=== PATIENT | female | born 1990 | race Caucasian/White ===

== ENCOUNTER 2021-11-24 10:04 | Outpatient (REF) | payer OTHER, SELFPAY ==
[2021-11-24 13:51] LABS: MANUAL DIFF FLAG NO
[2021-11-24 13:55] LABS: Basophils Percent Auto 0.6 % (0-2); Eosinophils Absolute Auto 0.1 X10*3/uL (0.0-0.4); Eosinophils Percent Auto 2.4 % (0-4); Hematocrit 43.9 % (37.0-47.0); Hemoglobin 15.3 g/dl (12.0-16.0); Imm Gran Abs Auto 0.01 X10*3/uL (0.00-0.03); Imm Gran Pct Auto 0.2 % (0.0-0.4); Lymphocytes Absolute Auto 1.1 X10*3/uL (1.2-4.9); Mean Corpuscular HGB Conc 34.9 g/dl (31.0-35.0); Mean Corpuscular Hemoglobin 30.8 pg (27.0-33.0); Mean Corpuscular Volume 88.3 fL (80.0-98.0); Monocytes Absolute Auto 0.3 X10*3/uL (0.1-1.2); Monocytes Percent Auto 6.7 % (2-11); Neutrophils Absolute Auto 3.1 x10*3/uL (2.0-8.3); Neutrophils Percent Auto 66.1 % (45-73); Platelet Count 188 X10*3/uL (160-400); Red Blood Count 4.97 X10*6/uL (4.20-5.50); Red Cell Distribution Width 12.4 % (11.0-16.0); White Blood Count 4.6 X10*3/uL (4.8-10.8)
[2021-11-24 14:04] LABS: Prothrombin Time 11.7 SEC (10.0-13.1)
[2021-11-24 14:10] LABS: Alanine Aminotransferase 19 U/L (0-31); Alkaline Phosphatase 56 U/L (39-117); Anion Gap 14 (12-20); Aspartate Amino Transferase 29 U/L (5-31); Bilirubin Total 1.1 mg/dL (0.0-1.0); Blood Urea Nitrogen 15 mg/dL (9-16); Carbon Dioxide 28 mmol/L (22-29); Chloride 101 mmol/L (96-108); Cholesterol 234 mg/dL; Estimated Glomerular Filt Rate > 60; Glucose Fasting 86 mg/dL (60-99); HDL Cholesterol 71 mg/dL; LDL Cholesterol Calculated 151 mg/dl; Potassium 4.4 mmol/L (3.3-5.1); Sodium 139 mmol/L (135-145); Total Protein 7.8 g/dL (6.5-8.0); Triglycerides 60 mg/dL
[2021-11-24 14:31] LABS: TSH reflex Free T4 1.64 uIU/mL (0.32-4.0)
[2021-11-24 14:35] LABS: Syphilis Screen Nonreactive (Nonreactive)
[2021-11-25 05:26] LABS: HBS Num1 52.75 mIU/mL (0-7.99); HBc Num1 0.07 S/CO (0.00-0.79); HBsAGNum1 0.28 S/CO (0.00-0.99); HIV AB/AG Nonreactive (Nonreactive); HIV Num 1 0.07 S/CO (0.00-0.99); Hepatitis B Core Antibody Nonreactive (Nonreactive); Hepatitis B Surface Antigen Negative (Negative); ~Hepatitis B Surface Antibody REACTIVE (Nonreactive); ~Hepatitis C Antibody Nonreactive (Nonreactive)
[2021-12-01 15:52] LABS: Factor VIII Activity Clotting 71 % normal (50-180); PTT, Activated 30 sec (23-32); Ristocetin Cofactor 61 % normal (42-200)
== END 2021-11-24 10:05 | disposition home or self-care (01) ==
LOC: HO.WFDLDS 10:04
PROVIDERS: Visit Provider Family Medicine
DX: Z00.00 Encounter for general adult medical examination without abnormal findings (principal); Z11.4 Encounter for screening for human immunodeficiency virus [HIV]; Z11.3 Encounter for screening for infections with a predominantly sexual mode of transmission; R23.8 Other skin changes
CPT/HCPCS: 36415; 80053; 80061; 84443; 85025; 85240; 85245; 85246; 85247; 85610; 85730; 86704; 86706; 86780; 86803; 87340; 87389

== ENCOUNTER 2022-01-14 09:58 | Outpatient (REF) | payer OTHER, SELFPAY ==
--- NOTE | ~2022-01-14 | XR_ITS ---
EXAMINATION: XR SACRUM AND COCCYX CLINICAL INFORMATION: Sacrococcygeal disorders COMPARISON: None TECHNIQUE: 3 views of the sacrum and coccyx FINDINGS: No acute fracture or dislocation. Joint spaces are maintained. Intrauterine device in the pelvis just left of midline. XR/XR sacrum coccyx min 2V IMPRESSION: No acute osseous abnormality. Intrauterine device in the pelvis just left of midline.
== END 2022-01-14 09:59 | disposition home or self-care (01) ==
LOC: HO.LAB 09:58
PROVIDERS: PCP Family Medicine; Visit Provider Family Medicine
DX: M53.3 Sacrococcygeal disorders, not elsewhere classified (principal)
CPT/HCPCS: 72220

== ENCOUNTER 2023-02-23 08:51 | Outpatient (AMB) | payer OTHER, SELFPAY ==
--- NOTE | 2023-02-23 08:54 | MHC.PC.OV ---
Vital Signs 02/23/23 08:55 Height 5 ft 7 in Weight 139 lb 6 oz BMI 21.8 BP 108/68 Blood Pressure Location Lt brachial Position Sitting Pulse 70 Pulse Source Pulse Oximeter Pulse Oximetry (%) 98 Oxygen Delivery Method Room Air Intake Visit Reasons: Annual PE Intake Note: Patient is here today for her physical, and left ear infection? and a couple of skin spots with question of eczema rash right above coccyx Is last menstrual period known: Yes (IUD make it not regular) Allergies No Known Allergies Allergy (Verified 02/23/23 08:58) Tobacco use date assessed: 02/23/23 Dental Screening Dental Screen Date: 02/23/23 Did you have a dental visit in the last 12 months?: No Did you have a dental problem in the last 6 months where you did not have access to dental care?: No Was dental information given to patient?: Patient has dentist HPI Annual PE HPI Details 32 y/o female presents for a CPE with f/u labs and health maintenance. No recent labs to review. Hx of hypercholesterolemia. She reports she had made dietary changes and has been eating more vegetables. She has complaints of a rash on her back. She reports ? L ear infection. She notes she got a new piercing and is worried something is wrong with it. She reports FHx of hearing issues and states she has never had a hearing test. Pt reports ongoing cough from a viral illness she had recently gotten over. Pt reports a bump on her leg. HPI Comments History of Present Illness Details Documentation assistance for Levon Cartwright MD, was provided by Goyo Le, Laboratory Animal Care Veterinarian on 02/23/2023 9:29 AM EST. Padilla, Dr. Cartwright, have read, observed, and verified documentation. FORMERLY [facility], [facility]1983 Medical History No pertinent past medical history Surgical History [place] teeth removed Family History Other Mental health disorder Social History Housing: House Patient Tobacco Use Status: Never used Tobacco e-Cigarette/Vaping Use: Never Used Second Hand Smoke Exposure: No service: No Current occupational status: unemployed Current occupational exposures/hazards: No Cognitive needs: No Hearing needs: No Vision needs: No Questionnaire PHQ-9 Over the last 2 weeks, how often have you been bothered by any of the following problems? 1. Little interest or pleasure in doing things: not at all 2. Feeling down, depressed, or hopeless: not at all 3. Trouble falling or staying asleep, or sleeping too much: not at all 4. Feeling tired or having little energy: not at all 5. Poor appetite or overeating: not at all 6. Feeling bad about yourself - or that you are a failure or have let yourself or your family down: not at all 7. Trouble concentrating on things, such as reading the newspaper or watching television: not at all 8. Moving or speaking so slowly that other people could have noticed. Or the opposite - being so fidgety or restless that you have been moving around a lot more than usual: not at all 9. Thoughts that you would be better off or of hurting yourself in some way: not at all Total score: 0 Source: Developed by Drs. Lul Celestin, Caitlin Claire, Dennis Kilpatrick and colleagues, with an educational dario from [employer]. Thrive Questionnaire Date Thrive assessed: 02/23/23 I am a: Patient What is your living situation today?: I have a steady place to live Within the past 12 months, did the food you bought not last and you didn't have the money to get more?: Never true Within the past 12 months, did you worry whether your food would run out before you got money to buy more?: Never true Do you have trouble paying for medicines?: No Do you have trouble getting transportation to medical appointments?: No Do you have trouble paying your heating and electricity bill?: No Do you have trouble taking care of your child, family member or friend?: No Do you have trouble with day-to-day activities such as bathing, preparing meals, shopping, managing finances, etc.?: No Are you currently unemployed and looking for a job?: Yes Are you interested in more education?: No AUDIT C Alcohol Use Questionnaire (AUDIT-C) 1. How often do you have a drink containing alcohol?: 2-3 times a week 2. How many drinks containing alcohol do you have on a typical day when you are drinking?: 1 or 2 3. How often do you have six or more drinks on one occasion?: Never Total Score: 3 HILDA-7 AMB Questionnaire HILDA-7 Date HILDA - 7 assessed: 02/23/23 Feeling nervous, anxious, or on edge: 0 = Not at all Not being able to stop or control worryin = Not at all Worrying too much about different things: 0 = Not at all Trouble relaxin = Not at all Being so restless that it is hard to sit still: 0 = Not at all Becoming easily annoyed or irritable: 0 = Not at all Feeling afraid as if something awful might happen: 0 = Not at all Total HILDA-7 score (0-4 normal; 5-9 mild; 10-14 moderate; 15-21 severe): 0 Source: Developed by Drs. Lul Celestin, Caitlin Claire, Dennis Kilpatrick and colleagues, with an educational dario from [employer]. Review of Systems Const Denies chills, Denies fatigue, Denies fever(s), Denies headache(s) and Denies weakness Eyes Denies change in vision ENT Denies dizziness, Denies headache(s), Denies hearing loss, Denies nasal congestion, Denies sinus pain, Denies sinus pressure and Denies sore throat Card Denies chest pain, Denies lightheadedness, Denies dyspnea and Denies other (palpitations) Resp Reports cough, Denies dyspnea and Denies wheezing GI Denies abdominal pain, Denies melena, Denies hematochezia, Denies change in bowel habits, Denies dyspepsia and Denies nausea Denies hematuria and Denies dysuria Musc Denies abnormal gait, Denies myalgias, Denies arthralgias, Denies numbness and Denies tingling Skin/Breast Reports rash, Denies unusual bruising and Denies wounds Neuro Denies abnormal gait, Denies dizziness, Denies headache(s), Denies memory loss, Denies numbness, Denies Sensory deficit (Neuro), Denies tingling and Denies weakness Psych Denies anxiety, Denies depression and Denies memory loss Endo Denies cold intolerance, Denies fatigue, Denies heat intolerance, Denies polydipsia and Denies polyuria Jose Elias/Lymph Denies easy bleeding and Denies easy bruising Aller/Immun Denies wheezing Physical exam (Primary Care) Vital Signs: Last Vital Signs Pulse 70 02/23/23 08:55 BP 108/68 02/23/23 08:55 Pulse Ox 98 02/23/23 08:55 Oxygen Delivery Method Room Air 02/23/23 08:55 BMI result Body Mass Index 21.8 Tobacco/Smoking Status: Tobacco use Status Tobacco use date assessed 02/23/23 02/23/23 09:06 Patient Tobacco Use Status Never used Tobacco 02/23/23 09:06 e-Cigarette/Vaping Use Never Used 02/23/23 09:06 PHQ-9: PHQ-9 Score PHQ-9: Total score 0 02/23/23 09:20 Thrive Assessment: Date of Thrive Assessment Date Thrive assessed 02/23/23 02/23/23 09:06 Const General: no acute distress, well developed, alert and awake Nutritional Appearance: well nourished Orientation/consciousness: patient oriented x3 HENMT Head: Yes normocephalic and Yes atraumatic Ears: hearing grossly normal bilaterally and TM's normal bilaterally General nose exam: Normal external nose present and Normal nares present Mouth: Normal oral and palatal mucosa present and moist mucous membranes Teeth and gingiva: dentition normal Throat: Yes posterior oropharynx normal Eyes General: appearance normal, both eyes and all related structures Pupils: Equal, round and reactive pupils present and Pupil accommodation reflex normal EOM: EOMs intact bilaterally Neck Neck: Yes normal visual inspection, Yes no lymphadenopathy and Yes trachea midline Thyroid: Thyroid normal Carotids: no bruits Lymphatic: no lymphadenopathy noted Chest Chest palpation & inspection: normal inspection of the chest Resp Effort & Inspection: normal respiratory effort Auscultation: clear to auscultation bilaterally Cardio Rate: regular rate Rhythm: regular rhythm Heart sounds: S1 normal heart sound present, S2 normal heart sound present, no gallops, no murmurs and no rubs Bruits: no abdominal aortic bruits and no carotid bruits GI Palpation (GI): No Abdominal aortic bruit present, Soft to palpation, nontender, No hepatosplenomegaly present and No Rebound tenderness present Auscultation: normal bowel sounds General: Yes no CVA tenderness Back/Spine/Pelvis Back: no CVA tenderness Cervical Spine: cervical ROM normal and No Cervical spine tenderness Thoracic/Lumbar Spine: thoraco-lumbar ROM normal, No pain with thoraco-lumbar ROM, No thoracic spinal tenderness and No lumbar spinal tenderness Skin Lesions: no lesions Rashes: no rashes Trauma: no lacerations or abrasions Wounds: no wounds Nails: normal Neuro General: patient oriented x3 Cranial nerves: Yes Equal, round and reactive pupils present Cognition (Neuro): normal cognition Gait exam (Neuro): Normal gait present Motor exam (neuro): 5/5 motor strength present throughout Sensory Exam: No Sensory deficit (Neuro) Deep tendon reflexes (DTR's): Right patellar reflex intensity grade: 2+ and Left patellar reflex intensity grade: 2+ Extrem General: Yes normal to inspection and No edema Psych Appearance: grossly normal Affect: normal affect Attitude: cooperative Thought process: Normal thought process present Office Procedures Flu Questionnaire Does the patient have a severe egg allergy?: No Does the patient have severe life threatening allergies?: No Does the patient have a fever or illness today?: No Has the patient ever had Guillain-[place] Syndrome?: No Has the patient ever had any past reaction to a flu shot?: No Immunizations flu vacc [id number] 6mos up(PF) 60 mcg(15 mcgx4)/0.5 mL IM syringe Performing Provider: Levon Cartwright MD Performing Location[place] [facility] Documented (not given) by: Catina Marsh CMA on 02/23/23 09:12 Reason Not Given: Patient Refused Assessment and Plan Assessment & Plan (1) Adult general medical exam: Code(s): Z00.00 - Encounter for general adult medical examination without abnormal findings (2) Change in hearing: Code(s): H91.90 - Unspecified hearing loss, unspecified ear Plan: Referred?for?audiology?hearing?test (3) Hypercholesterolemia: Code(s): E78.00 - Pure hypercholesterolemia, unspecified Plan: Lipids?were?elevated.??Advised?lifestyle?changes?which?patient?says?she?is?made. She?is?due?to?have?this?rechecked?so?she?will?get?her?labs?drawn?sometime?this?week?or?next?and?we?can?follow-up?in?a?few?weeks (4) Eczema: Code(s): L30.9 - Dermatitis, unspecified Plan: Likely?eczema?on?her?hands?and?forearms She?can?use?hydrocortisone?cream?OTC?when?this?flares?up. Can?use?Aquaphor?periodically?throughout?her?day?and?after?washing. (5) Family history of hearing loss: Code(s): Z82.2 - Family history of deafness and hearing loss Plan: As?above,?patient?is?referred?for?hearing?testing (6) Screening for cervical cancer: Code(s): Z12.4 - Encounter for screening for malignant neoplasm of cervix Plan: Last?Pap?smear?in?greater?than?3?years?ago Patient?requests?referral?to?medical i d sales-referred Orders: Orders Influenza [id number] Immunization Today Z23 - Encounter for immunization Complete Blood Count Auto Diff Today Z00.00 - Encounter for general adult medical examination without abnormal findings Lipid Panel Today Z00.00 - Encounter for general adult medical examination without abnormal findings Microalbumin, Random (w Creat) Today I10 - Essential (primary) hypertension TSH reflex Free T4 Today Z00.00 - Encounter for general adult medical examination without abnormal findings Comprehensive [place]. 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
[2023-02-23 08:55] VITALS: BP 108/68; PULSE 70; O2SAT 98; BMI 21.8
== END 2023-02-23 09:44 | disposition home or self-care (01) ==
PROVIDERS: PCP Family Medicine; Visit Provider Family Medicine
DX: Z00.00 Encounter for general adult medical examination without abnormal findings (principal); H91.90 Unspecified hearing loss, unspecified ear; E78.00 Pure hypercholesterolemia, unspecified; L30.9 Dermatitis, unspecified; Z82.2 Family history of deafness and hearing loss
CPT/HCPCS: 99395

== ENCOUNTER 2023-05-03 10:28 | Outpatient (AMB) | payer OTHER, SELFPAY ==
[2023-05-03 10:31] VITALS: BP 104/68; BMI 22.1
--- NOTE | 2023-05-03 10:31 | MHC.OFFVIS ---
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 Intake Note: Need mirena exchange Telesales Consultant Required: No Information Interpreted: non-clinical & clinical Senior Portfolio Manager: Senior Portfolio Manager Present (Lola) Allergies macadamia nut Allergy (Mild, Verified 05/03/23 10:34) Anaphylaxis Medication List - Last Reconciled 05/03/23 by Elham Amor CNM levonorgestrel (Mirena) intrauterine spironolactone 50 mg PO BID 90 days tretinoin 0.05% appl topical BID Is last menstrual period known: No (Mirena no menses) Post menopausal: No HPI 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 She does have a history of abnormal Paps but follow-up was okay. She has a Mirena in that she thinks is in for about 5 years and will be due to be exchanged sometime this year she is starting to get more cramping that she remembers was like when she had her.. Before she had the Mirena she had a Janel she was getting pretty severe cramping with it so she was placed on the Mirena and that is gradually improve things as well using up to 800 mg ibuprofen. She has not interested in having children any time soon she is in a monogamous relationship as no worries about STDs is open to testing with the exam but does not need blood work. 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 she has donated platelets and had an normal platelet level. [facility] Medical History No pertinent past medical history Surgical History [place] teeth removed Family History Other Mental health disorder Social History (Updated 05/03/23 @ 10:36 by CJ Cool) Housing: House Alcohol intake: current Alcohol intake frequency: holidays/special occasions only Patient Tobacco Use Status: Never used Tobacco e-Cigarette/Vaping Use: Never Used Second Hand Smoke Exposure: No service: No Current occupational status: unemployed Current occupational exposures/hazards: No Cognitive needs: No Hearing needs: No Vision needs: No Female Reproductive History Menstrual Age of Menarche: 16 Duration of menses: 6-7 days control method: progestin IUCD Total pregnancies: 0 History of abnormal pap smear: Yes Physical Exam Vital Signs: Last Vital Signs BP 104/68 05/03/23 10:31 BMI result Body Mass Index 22.1 Const General: healthy appearing, comfortable, no acute distress, well developed and alert Nutritional Appearance: average body habitus Orientation/consciousness: patient oriented x3 Limitations: no limitations HEENT Head: Yes normocephalic Neck Neck: Yes normal visual inspection Chest Chest palpation & inspection: normal inspection of the chest Breast/axilla inspection: normal inspection of the breasts and normal inspection of the axillae Breast/axilla palpation: normal palpation of the breasts and normal palpation of the axillae Resp Effort & Inspection: normal respiratory effort GI Inspection: Yes normal to inspection, No Abdominal wall edema and No distended Palpation (GI): Soft to palpation and nontender General: Yes bladder normal to palpation External Female Exam: normal external appearance and normal appearance of the urethra Speculum Exam - Vagina: normal appearance of the vagina, normal palpation and normal vaginal discharge Speculum Exam - Cervix: normal appearance of the cervix, normal palpation and nontender Bimanual exam- vagina & uterus: normal bimanual exam, normal palpation, uterine size normal, bladder normal to palpation, consistency normal, normal palpation, uterine mobility normal, uterine shape normal, No Cervical tenderness present, non-tender and no cervical motion tenderness Bimanual Exam- Adnexa, other: normal adnexae, no masses, normal and No adnexal tenderness Neuro General: patient oriented x3 Assessment & Plan Assessment & Plan (1) Screening for cervical cancer: Code(s): Z12.4 - Encounter for screening for malignant neoplasm of cervix (2) Easy bruising: Code(s): R23.8 - Other skin changes (3) Well woman exam with routine gynecological exam: Code(s): Z01.419 - Encounter for gynecological examination (general) (routine) without abnormal findings (4) Presence of 52 mg levonorgestrel-releasing intrauterine device (IUD): Code(s): Z97.5 - Presence of (intrauterine) contraceptive device Plan -----Discussed in this visit the following: healthy balanced diet, regular and consistent exercise, getting recommended health screens, doing the best she can for her particular health concerns, kegel exercises, pap smear screening and followup recommendations, mammography screening and SBE, normal changes in cycles in her life stage--- .----I reviewed available options for Control Methods and their associated side effect profiles. In particular, we discussed the method most of interest to her. Reviewed how the Mirena works and its affect on menstrual cycles and menses and the other common changes that women sometimes notice on mood weight another subtle cyclic changes. Reviewed that 1 of the reasons we insert the Mirena at the beginning of the menses is because of the typical physiologic changes that happen with menses that allow for the cervix to be slightly softened and open a very tiny bit which allow for more easy insertion of the Mirena. Additionally when it is inserted at the beginning of the menstrual cycle the endometrial lining has not built up very much yet as it is just shedding its lining, and therefore future periods will be expected to be community living coach and there will be less of a problematic side effect of irregular bleeding which might occur her if we inserted it at a random time. Also discussed the initial recommendations to use the Mirena IUD for contraception for up to 5 years. Some recent studies are indicating that it can be used for longer and there are current recommendations saying it can be left for longer period of time when used for contraception, up to 8 years and it can be used for 5 years when it is being used to help control abnormal bleeding. However, many women, whose periods went away for the 1st few years of having the Mirena, have reported that around 4-1/2-5 years into its use, they have noticed return of full menses, and return of ovulatory signs and symptoms midcycle. This varies from women to woman. In addition women who have had it to help control bleeding, have had amenorrhea for very many years and sometimes have opted to leave it in longer if they are still not bleeding, when they are not concerned about contraception. I recommend the she pay attention to how the effects are acting on her own body, and cycles, and always take care to be aware of this. And if she is using it for contraception, and the consequences of conceiving would be great for her, she would be bryson to pay attention to this, and not depend on it, if she has a return to fertility. And if she desires replacement, she should return for replacement at the appropriate time. She will call if she gets a return to menses for replacement of the Mirena and in the meantime when she feels it is appropriate to exchange it based on the above information she may call for replacement as well. Discussed why it can cramps so much when there has a removal and insertion especially with somebody who has not had a baby. 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 She always had regular periods before insertion of the Janel and then the Mirena which replaced it. She had no question of PCOS in her past history. The spironolactone simply helped with her acne so she has stayed on it. Orders: Orders Bacterial Vaginosis Panel Today Z11.3 - Encounter for screening for infections with a predominantly sexual mode of transmission CT NG by PCR Today Z11.3 - Encounter for screening for infections with a predominantly sexual mode of transmission Pap Smear Today Z12.4 - Encounter for screening for malignant neoplasm of cervix Coding Level of Care Code New Pt Prev Care 18-39yr([id number] Diagnoses Screening for cervical cancer Z12.4 Easy bruising R23.8 Well woman exam with routine gynecological exam Z01.419 Presence of 52 mg levonorgestrel-releasing intrauterine device (IUD) Z97.5
== END 2023-05-03 11:39 | disposition home or self-care (01) ==
LOC: HO.HWSM 10:28
PROVIDERS: PCP Family Medicine; Visit Provider Advanced Practice Midwife
DX: Z01.419 Encounter for gynecological examination (general) (routine) without abnormal findings (principal); R23.8 Other skin changes
CPT/HCPCS: 99385

== ENCOUNTER 2023-05-03 10:28 | Outpatient (REF) | payer OTHER, SELFPAY ==
[2023-05-04 03:41] LABS: CT PCR NOT DETECTED (Not Detect.); NG PCR NOT DETECTED (Not Detect.)
[2023-05-04 11:12] LABS: BV Int Neg Control Negative (Negative); BV Int Pos Control Positive (Positive)
[2023-05-08 20:09] LABS: HPV mRNA E6/E7 rflx Not Detected (Not Detected)
== END 2023-05-03 10:29 | disposition home or self-care (01) ==
LOC: HO.LNP 10:28
PROVIDERS: PCP Family Medicine; Visit Provider Advanced Practice Midwife
DX: Z01.419 Encounter for gynecological examination (general) (routine) without abnormal findings (principal); Z11.51 Encounter for screening for human papillomavirus (HPV); Z20.2 Contact with and (suspected) exposure to infections with a predominantly sexual mode of transmission
CPT/HCPCS: 0353U; 87480; 87510; 87624; 87660; 88142

== ENCOUNTER 2023-05-19 12:14 | Outpatient (REF) | payer OTHER, SELFPAY | END 2023-05-19 12:15 | disposition home or self-care (01) | LOC: HO.SH 12:14 | PROVIDERS: Visit Provider Family Medicine | DX: Z01.10 Encounter for examination of ears and hearing without abnormal findings (principal); H93.293 Other abnormal auditory perceptions, bilateral | CPT/HCPCS: 92552; 92556; 92567 ==

== ENCOUNTER 2024-04-02 09:51 | Outpatient (AMB) | payer OTHER, SELFPAY ==
[2024-04-02 09:56] VITALS: BP 106/68; BMI 22.1
--- NOTE | 2024-04-02 09:56 | MHC.OFFVIS ---
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 She did find the insertion procedure pretty painful. This last 1 was inserted in [place] 5 years ago. She did not faint or pass out but it was still painful. She does not get periods at all and she does not even get spotting or cramping or breast symptoms or premenstrual symptoms that indicate when might be a light menses.. She is not particularly worried about any STIs but is open to testing today preprocedure her Pap smear was negative last year. She does have concerns about patchy areas on her skin 1 on her right pineda and 1 on her right buttock. She has been trying to get into her primary care provider but there been scheduling challenges she is interested in referrals for dermatology and possibley to evaluate whether not she might have ADHD. [facility] Medical History Screening for cervical cancer No pertinent past medical history Surgical History [place] teeth removed Family History Other Mental health disorder Social History Housing: House Alcohol intake: current Alcohol intake frequency: holidays/special occasions only Patient Tobacco Use Status: Never used Tobacco e-Cigarette/Vaping Use: Never Used Second Hand Smoke Exposure: No service: No Current occupational status: unemployed Current occupational exposures/hazards: No Cognitive needs: No Hearing needs: No Vision needs: No Female Reproductive History Menstrual Age of Menarche: 16 control method: progestin IUCD Total pregnancies: 0 Date of last pap smear: 05/03/23 (negative) Physical Exam Vital Signs: Last Vital Signs BP 106/68 04/02/24 09:56 BMI result Body Mass Index 22.1 Const Other: 3 cm flattened shiny hyperpigmented area on right pineda, Dry reddened scabby area on left buttock she says that both get itchy and the buttock one arises if she wears panty liners. General: healthy appearing, comfortable, no acute distress, well developed and alert Nutritional Appearance: average body habitus Orientation/consciousness: patient oriented x3 Limitations: no limitations HEENT Head: Yes normocephalic Neck Neck: Yes normal visual inspection Chest Chest palpation & inspection: normal inspection of the chest Breast/axilla inspection: normal inspection of the breasts and normal inspection of the axillae Breast/axilla palpation: normal palpation of the breasts and normal palpation of the axillae Resp Effort & Inspection: normal respiratory effort GI Inspection: Yes normal to inspection, No Abdominal wall edema and No distended Palpation (GI): Soft to palpation and nontender Other: External vulva within normal limits rash she area possibly consistent with eczema left buttock cheek Vagina pink and moist cervix nulliparous tightly closed with Mirena string visible extending about 1-1/2 2 cm clear scant discharge cervix long close thick mobile nulliparous. Uterus small midposition deviated slightly to patient's left mobile nontender not enlarged adnexa nonenlarged good tone with Kegel. General: Yes bladder normal to palpation External Female Exam: normal external appearance and normal appearance of the urethra Speculum Exam - Vagina: normal appearance of the vagina, normal palpation and normal vaginal discharge Speculum Exam - Cervix: normal appearance of the cervix, normal palpation and nontender Bimanual exam- vagina & uterus: normal bimanual exam, normal palpation, uterine size normal, bladder normal to palpation, consistency normal, normal palpation, uterine mobility normal, uterine shape normal, No Cervical tenderness present, non-tender and no cervical motion tenderness Bimanual Exam- Adnexa, other: normal adnexae, no masses, normal and No adnexal tenderness Neuro General: patient oriented x3 Results AMB Test Urine AMB Test Urine Negative Last Edit by Thomas Kim CMA on 04/02/24 10:17 Results Reviewed Results Reviewed: Laboratory Last Values [facility] Clinic Negative 04/02/24 10:02 Assessment & Plan Assessment & Plan (1) Presence of 52 mg levonorgestrel-releasing intrauterine device (IUD): Comment: W.ill plan for replacement with premedication with misoprostol as discussed 04/02/2024 Code(s): Z97.5 - Presence of (intrauterine) contraceptive device Category: Social Hx Plan Discussed in great deal re she would removing and inserting the Mirena IU S for somebody who is nulliparous who is not on their menses. Discussed that it would be helpful and beneficial to premedicate with vaginal misoprostol to apply about 6 hours prior to insertion and for her to repeat the dose if she does not have notable cramping by about 2 hours prior to the procedure. Discussed alternatives but the this has a better chance of mitigating the pain of the procedure and helping with the success by softening and helping the cervix to be more pliable to manipulation. Discussed to expect cramping in any case that can be relieved with ibuprofen. She agrees with this plan to mitigate the discomfort of the procedure. I have sent a prescription for 200 mg misoprostol x2 with a refill in case there is an interruption in the plan and she needs to rescheduled for some reason. Cultures were done preprocedure today. Patient will schedule Mirena removal and replacement as above. For the possible eczematous skin reactions I suggested 1% hydrocortisone [id number] for a couple of weeks was she is awaiting dermatology , and primary care. Orders: Orders AMB HCG Urine Test Today Z32.02 - Encounter for test, result negative Medications: New misoprostol [address] one tab 6 hrs prior to iud insertion, if no cramping, or only minimal cramping, repeat dose 2 hours before planned insertion, . 2 tabs 1RF Coding Level of Care Code Est Pt Level 3 (42469) Diagnoses Presence of 52 mg levonorgestrel-releasing intrauterine device (IUD) Z97.5
--- OUTSIDE RECORDS SUMMARY | 2024-04-02 10:19 | XMS_ITS | Continuity of Care Document ---
Author Name [facility] Organization [facility] Care Team Providers Care Punch Out Crew Member Name Role Phone [facility] Unavailable Unavailable Problems Combined list of problems from Department [facility] and [facility] facilities. It does not include entries that were removed or entered in error. Problem Status Onset Date Problem Type Date of Resolution Comme nts Source Allergy to other foods Active 07/19/2018 Condition DoD Medications Combined list of outpatient medications from Department of [facility] and [facility] facilities.Medications provided include 1) outpatient medications from the last 15 months, and 2) patient-reported medications. Medication Details Route Status Patient Instructions Prescription Expires Prescription Number Last Dispense Date Ordering Provider Order Date Order Qty Source cephalexin 500 mg oral tablet 0 total refill(s ) Ordered No Facilit y Access SPIRONOLACT ONE (spironolac tone), 50 MG, TABLET, ORAL, [facility], 100 ea. BOTTLE Active [id number] 2023 180 Pharmac y Data Transac tion Service Facilit y spironolact one 50 mg oral tablet 1 tab(s), Oral, BID, # 180 tab(s), 3 total refill(s ), Maintena nce, 1 tab(s) Oral BID, Pharmacy : [facility] Oral (given by mouth) Ordered 180.0 0010C-D [facility] Allergies, Adverse Reactions, Alerts Combined list of allergies from Department [facility] and [facility] facilities. It does not include entries that were removed or entered in error. Substance Category Reaction Severity Reaction type Status Date Reported Comments Source MACADAMIA NUT OIL {Cla } Propensity to adverse reactions to substance Nausea Active 9 Ambulatory Pharmacy Immunizations Combined list of available immunizations from the Department of [facility] and [facility] facilities. Immunization Series Date Given Administered By Site Reaction Lot Number CVX Code Drug General Farmer Status Comments Source varicella virus vaccine 2018 Elena Arm [id number] Merck & Company Inc complet ed varicella virus vaccine 07/24/18 Given Ambulat ory Pharmac y hepatitis A-hepatitis B vaccine 2018 zzLef t Arm [id number] GlaxoSmithKli ne complet ed hepatitis A-hepatit is B vaccine 07/24/18 Given Ambulat ory Pharmac y measles/mumps /rubella virus [facility] [id number] Merck & Company Inc complet ed measles/m umps/rube lla virus vaccine 07/24/18 Given Ambulat ory Pharmac y measles, mumps and rubella virus vaccine 1 2018 Unknown, Provider [id number] Merck (MSD) complet ed measles, mumps and rubella virus vaccine DoD varicella virus vaccine 1 2018 Unknown, Provider [id number] 21 Merck (MSD) complet ed varicella virus vaccine DoD hepatitis A and hepatitis B vaccine 1 2018 Unknown, Provider [id number] [facility] (SKB) complet ed hepatitis A and hepatitis B vaccine DoD influenza, injectable, quadrivalent- pf [facility] [id number] 150 Seqirus complet ed influenza , injectabl e, quadrival ent-pf 07/09/18 Given Ambulat ory Pharmac y tetanus, diphtheria, acellular pertu is 2018 zzLef t Arm [id number] 115 GlaxoSmithKli ne complet ed tetanus, diphtheri a, acellular pertussis 07/09/18 Given Ambulat ory Pharmac y poliovirus vaccine, inactivated [facility] Arm 10 sanofi pasteur complet ed polioviru s vaccine, inactivat ed 07/09/18 Given Ambulat ory Pharmac y poliovirus vaccine, inactivated 1 2018 Unknown, Provider 10 Sanofi Pasteur (PMC) complet ed polioviru s vaccine, inactivat ed DoD tetanus toxoid, reduced diphtheria toxoid, and acellular pertu is vaccine, adsorbed 1 2018 Unknown, Provider [id number] 115 SmithKline (SKB) complet ed tetanus toxoid, reduced diphtheri a toxoid, and acellular pertussis vaccine, adsorbed DoD Influenza, injectable, quadrivalent, preservative free 1 2018 Unknown, Provider [id number] 150 Seqirus (SEQ) complet ed Influenza , injectabl e, quadrival ent, preservat ken free DoD Vital Signs Combined list of inpatient and outpatient Vital Signs from Department of [facility] and [facility], ranging from 12 months to all on record, depending upon the facility. Vital Sign Value Date Comments Source No data available for this section Ambulatory Pharmacy Encounters Combined list of: 1) Encounters from [facility] facilities going back up to thelast 18 months. 2) Encounters from the [facility] facilities going back up to 280 months. Location Location Details Encounter Type Encounter Number Reason For Visit Attending Provider ADM Date DC Date Status Disposition Source [facility]) OUTPATIENT [id number] CONTROL LUCIANO RICE 04/27 Released w/o Limitations [facility]) [facility]) OUTPATIENT [id number] SWITCH BC LUCIANO RICE 02/03 Released w/o Limitations [facility]) [facility]) OUTPATIENT [id number] adal insert LUCIANO RICE 02/11 Released w/o Limitations [address] [place] [address]([facility]) [facility] _Team_Lob o) TELE CONSULT [id number] Notes Entered by: ANDREW YANES I 03 Mar 2016 1145 ------- ------- ------- ------- -- URGENT CARE PABLO JUAREZ 03/03 Referred for Appointment [facility]([place] _[facility]_Te am_Lobo ) [facility]) OUTPATIENT [id number] RE IUD LUCIANO RICE 03/10 Released w/o Limitations [facility]) [facility] [employer]([facility]) OUTPATIENT [id number] iud check, danisha lyles and TELMA Castillo 05/27 Released w/o Limitations [facility] [employer]([email or web address]) OUTPATIENT [id number] Pap / Ultraso und result - Resched TELMA Crews 06/17 Released w/o Limitations [email or web address] [employer]([facility]) OUTPATIENT [id number] 8 check for allergi es, discuss vaccina tiANGELICA Sherwood 07/06 Released w/o Limitations [facility]) [facility] [employer]([facility]) TELE CONSULT [id number] Notes Entered by: KALI GONZALEZ W 19 Jul 2018 1516 ------- ------- ------- ------- -- Lab result SONJA SERRA 07/19 [facility]) [facility]) TELE CONSULT [id number] Notes Entered by: KOBE BROOKS 09 Jan 2019 0940 ------- ------- ------- ------- -- OTHER/I UD REMOVAL AND REPLACE UBALDO BLANCHARD 01/09 Referred for Appointment [email or web address]) OUTPATIENT [id number] 5 current ly has adal mancinis consult for kyleena vs SUAD Arevalo 02/06 Released w/o Limitations [email or web address]) OUTPATIENT [id number] 1 IUD replace SUAD Barboza 02/14 Released w/o Limitations [email or web address]) TELE CONSULT [id number] Notes Entered by: SUAD HUFFMAN 25 Feb 2019 1215 ------- ------- ------- ------- -- lab results SOFI LARA 02/25 Referred for Appointment [email or web address]) OUTPATIENT [id number] IUD check/p ap smear SUAD HUFFMAN 04/05 Released w/o Limitations [address] [place] [address] Group([email or web address] [address] [place] [address]([facility]) TELE CONSULT [id number] Notes Entered by: SUAD HUFFMAN 17 Apr 2019 0955 ------- ------- ------- ------- -- pap results LAURENT MCKEON 04/17 Released to Self Care [email or web address]) OUTPATIENT [id number] Notes Entered by: LEXIE CLARK 01 Aug 2019 0955 ------- ------- ------- ------- -- Walk-in UTI SHAN LOPEZ 07/31 Released w/o Limitations [facility]) [address] [place] [address]([facility]) TELE CONSULT [id number] Notes Entered by: HILTON LOPEZ 01 Aug 2019 1442 ------- ------- ------- ------- -- Vaginal dischar ge and SONJA David 07/31 Advice Assessment [facility] [place] [place] TELE CONSULT [id number] Notes Entered by: HILTON LOPEZ 02 Aug 2019 1455 ------- ------- ------- ------- -- Urine Culture Results SAHN LOPEZ 08/01 [facility] [place] [place]) TELE CONSULT [id number] Notes Entered by: HILTON LOPEZ 06 Aug 2019 0812 ------- ------- ------- ------- -- Lab Results SONJA SERRA 08/05 Other Not Elsewhere Classified [facility] [place]) [facility](DMA FB [facility] [place]) TELE CONSULT [id number] Notes Entered by: Telma SERRA 07 Aug 2019 0711 ------- ------- ------- ------- -- MARSHALL secure message to cancel SHAN Pierce 08/06 [facility] Procedures Combined list of: 1) Procedures from Department of Veterans Affairs facilities going back up to thelast 18 months, not all [place] non-surgical procedures are included; 2) All procedures from the Department of Defense facilities. Procedure Procedure Type Code Date Perfomer Comments Sourc e No data available for this section Ambulato ry Pharmacy INSERTION OF INTRAUTERINE DEVICE (IUD) 6 [facility] SCREENING PAPANICOLAOU SMEAR; OBTAINING, PREPARING AND CONVEYANCE OF CERVICAL OR VAGINAL SMEAR TO LABORATORY 0 [facility] ONLINE ASSESS &MANAG SERV PROVIDE,A QUAL NONPHYS HCP TO AN ESTABLISHED PAT/GUARDIAN,NOT ORIGINAT FRM RELAT ASSESS &MANAG SERV PROVIDE W/IN THE PREV 7 DAYS,USE THE [employer] 9 DoD INSERTION OF INTRAUTERINE DEVICE (IUD) 9 [facility] TELE ASSESS & MGT SRV PROV QUAL NONPHYS HLTH CARE PRO TO EST PAT,PARENT,GUARD NOT ORIG REL ASSESS & MGT SRV PROV W/IN PREV 7 DAYS NOR LEAD ASSESS & MGT SRV/PX W/IN NXT 24 HR/SOON APT;5-10 MIN MED DIS 9 [facility] SCREENING PAPANICOLAOU SMEAR; OBTAINING, PREPARING AND CONVEYANCE OF CERVICAL OR VAGINAL SMEAR TO LABORATORY 7 DoD [employer] Med Svc Qual Nonphys Healthcare Prof Up To 7 Days Estab Patient Internet Med Svc Qual Nonphys Healthcare Prof Up To 7 Days Estab Patient [id number] 9 SOFI LARA DoD Screening papanicolaou smear; obtaining, preparing and conveyance of cervical or vaginal smear to laboratory 7 TELMA URIBE [facility] Gynecologic Services Intrauterine Device (IUD) Insertion Gynecologic Services Intrauterine Device (IUD) Insertion 10318 6 LUCIANO RICE DoD Urine HCG, Test Urine HCG, Test [id number] 6 LUCIANO RICE [facility] Non-Physician Phone Call To Patient/Provider Brief (5-10min) Non-Physician Phone Call To Patient/Provider Brief (5-10min) [id number] UBALDO MCGUIRE [facility] Preventive Med Performance Of Chlamydia And Gonorrhea Screenings Documented Preventive Med Performance Of Chlamydia And Gonorrhea Screenings Documented 3511F SUAD HUFFMAN [facility] Folder Seamer Services Intrauterine Device (IUD) Removal Hormone-Releasing Folder Seamer Services Intrauterine Device (IUD) Removal Hormone-Releasing 78853 NATHANAEL [facility] Folder Seamer Services Intrauterine Device (IUD) Insertion Hormone-Releasing Folder Se[employer] Services Intrauterine Device (IUD) Insertion Hormone-Releasing 25295 SUAD HUFFMAN [facility] Screening papanicolaou smear; obtaining, preparing and conveyance of cervical or vaginal smear to laboratory SUAD HUFFMAN [facility] Social History Combined list of available smoking, tobacco, and other social history from Department of Defense and Veterans Affairs facilities. Social History Type Response Date Comment Sourc e Female 06/08/2020 Ambulatory Pha rmacy Sexual Orientation Ambula tory Pharmacy Gender identity Ambulator y Pharmacy This section is an empty soc ial history section. DoD Assessment and Plan Combined list of future care activities from Department of Defense and Veterans Affairs facilities (e.g., assessment and plan notes, appointments, orders, and referrals). Additional future care activities may be listed in the Plan of Care section. Result Assessment and Plan Date Source Assessment and Plan No data available for this section 04/02/2024 Ambulatory Pharmacy Functional Status Combined list of recent functional and cognitive assessments recorded at Department of Defense and Veterans Affairs (VA).VA Functional Lander Measurement (FIM) Scale: 1 = Total Assistance (Subject = 0% +), 2 = Maximal Assistance (Subject = 25% +), 3 = Moderate Assistance (Subject = 50% +), 4 = Minimal Assistance (Subject = 75% +), 5 = Supervision, 6 = Modified Lander (Device), 7 = Complete Lander (Timely, Safely). Assessment Date/Time Source Assessment Type Assessment Skill Assessment Score Assessment Details No data available for this section
== END 2024-04-02 11:03 | disposition home or self-care (01) ==
PROVIDERS: PCP Family Medicine; Visit Provider Advanced Practice Midwife
DX: Z32.02 Encounter for pregnancy test, result negative (principal); Z97.5 Presence of (intrauterine) contraceptive device
CPT/HCPCS: 99213

== ENCOUNTER 2024-04-02 09:51 | Outpatient (REF) | payer OTHER, SELFPAY ==
[2024-04-03 02:40] LABS: CT PCR NOT DETECTED (Not Detect.); NG PCR NOT DETECTED (Not Detect.)
[2024-04-03 11:33] LABS: Bacterial Vaginosis PCR NEGATIVE (Negative); Candida Group PCR NOT DETECTED (Not Detect); Candida glab krusei PCR NOT DETECTED (Not Detect); Trichomonas vaginalis PCR NOT DETECTED (Not Detect)
== END 2024-04-02 09:52 | disposition home or self-care (01) ==
LOC: HO.LAB 09:51
PROVIDERS: PCP Family Medicine; Visit Provider Advanced Practice Midwife
DX: N89.8 Other specified noninflammatory disorders of vagina (principal); Z97.5 Presence of (intrauterine) contraceptive device
CPT/HCPCS: 81025; 81515; 87491; 87591; 99212; 99459

== ENCOUNTER 2024-05-06 13:54 | Outpatient (AMB) | payer OTHER, SELFPAY ==
--- NOTE | 2024-05-06 13:57 | A.OFFVIS_ITS ---
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 In preparation for this patient has taken to misoprostol her vagina today 1 in the morning and another 1 around 01:00 o'clock she did have some cramping and she also took 800 mg ibuprofen between the 01:00 o'clock dose and now. She did find the insertion years ago Marybeth painful but she is ready she does not get menses, she does not have childbearing her future. [facility] Medical History Screening for cervical cancer No pertinent past medical history Surgical History [place] teeth removed Family History Other Mental health disorder Social History Housing: House Alcohol intake: current Alcohol intake frequency: holidays/special occasions only Patient Tobacco Use Status: Never used Tobacco e-Cigarette/Vaping Use: Never Used Second Hand Smoke Exposure: No service: No Current occupational status: unemployed Current occupational exposures/hazards: No Cognitive needs: No Hearing needs: No Vision needs: No Female Reproductive History Menstrual Age of Menarche: 16 control method: progestin IUCD (Mirena) Total pregnancies: 0 Date of last pap smear: 05/05/23 (negative ) Physical Exam Vital Signs: Last Vital Signs BP 110/74 05/06/24 13:59 BMI result Body Mass Index 24.3 External Female Exam: normal external appearance Speculum Exam - Vagina: normal appearance of the vagina and normal vaginal discharge Speculum Exam - Cervix: normal appearance of the cervix Bimanual exam- vagina & uterus: normal bimanual exam, uterine size normal, consistency normal, uterine mobility normal, uterine shape normal and non-tender Bimanual Exam- Adnexa, other: normal adnexae, no masses and No adnexal tenderness Office Procedures IUD Insert/Removal Details Details: ---Patient is here for her IUD removal and insertion. Bimanual exam was done. Her uterus is firm, nontender, and appropriate sized, and is midposition to anteverted mobile and nontender . The IUD strings were grasped with ring forceps, and as patient coughed the IUD was removed easily with 1 tug. ---The cervix was cleaned with Betadine. Tenaculum was placed on the cervix slowly to minimize cramping. The uterus was sounded slowly and gently she show a measurement of 7 cm. The IUD was removed from its package, after checking identifying information and lot dates and expiration dates and and gently inserted into the os, as per the IUD insertion procedure. The strings were then trimmed to 2.5-3 centimetres. The tenaculum was removed and gentle pressure applied with a swab, until any bleeding subsided from the tenaculum sites. The speculum was gently removed. The patient sat up. I Reviewed what to expect, and what indications would necessitate a call. Pt to call for fever, untoward pain or cramping. I reviewed any appropriate backup method. Pt to return for recheck as scheduled. 18007-QPA Insertion 69281-TCV Removal Procedure code (CPT) selection complete Office Meds Mirena 21 mcg/24 hr (up to 8 years) 52 mg intrauterine device Performing Provider: Elham Amor CNM [facility] Administered by: Thomas Kim CMA on 05/06/24 14:41 Dose Route Admin Location Dispensed Lot Number Expiration Date [facility] Train Starter 1 device intrauterine 1 ea [id number] 05/24/26 Results AMB Test Urine AMB Test Urine Negative Last Edit by Thomas Kim CMA on 05/06/24 14:18 Results Reviewed Results Reviewed: Laboratory Last Values [facility] Negative 05/06/24 14:15 Also reviewed her negative cultures from previous Assessment & Plan Assessment & Plan (1) Presence of 52 mg levonorgestrel-releasing intrauterine device (IUD): Comment: W.ill plan for replacement with premedication with misoprostol as discussed 04/02/2024 Code(s): Z97.5 - Presence of (intrauterine) contraceptive device Category: Social Hx Plan This note is constructed using voice recognition software. While every effort has been made to ensure accuracy, warehouse receiver errors may have been included. The insertion went well the misoprostol tablets had not fully dissolved but they had had some effect on her cervix was slight resistance at the internal os but it still is able to be passed through. The insertion procedure smoothly she did experience some cramping and rested for a while before sitting. We will see her in 6 weeks for a checkup I reviewed danger signs of infection expulsion and for her to call for problems. I do expect any problems it did recommend no sex for several days and resume activity when she feels perfectly fine after. Some bleeding is to be expected also reviewed the length time this can be used future going forward it can be used for up to 8 years however if at 5 or 6 years she starts resuming menses and other symptoms of ovulatory cycles then she may want to consider for sooner replacement. She has no intention of childbearing in her life at this time. So discussed to use of the Mirena up through menopause. Orders: Orders AMB IUD Insertion/Removal - Practice Supplied Today Z30.430 - Encounter for insertion of intrauterine contraceptive device AMB HCG Urine Test Today Z32.02 - Encounter for test, result negative Coding Level of Care Code Est Pt Level 3 (51613) Diagnoses Presence of 52 mg levonorgestrel-releasing intrauterine device (IUD) Z97.5 CPT Codes Details - CPT: 09793-CXS Insertion ([id number]) Details - CPT: 76516-TEB Removal ([id number])
[2024-05-06 13:59] VITALS: BP 110/74; BMI 24.3
--- OUTSIDE RECORDS SUMMARY | 2024-05-06 15:04 | XMS_ITS | Continuity of Care Document ---
Author Name [facility] Organization [facility] Care Team Providers Care Digital Forensic Examiner Name Role Phone [facility] Unavailable Unavailable Problems Combined list of problems from Department [facility] and [facility] facilities. It does not include entries that were removed or entered in error. Problem Status Onset Date Problem Type Date of Resolution Comme nts Source Allergy to other foods Active 07/19/2018 Condition DoD Medications Combined list of outpatient medications from Department of [facility] and [facility] facilities.Medications provided include 1) outpatient medications [...] ORAL, [facility], 100 ea. BOTTLE Active [id number] 4 2023 180 Pharmac y Data Transac tion Service Facilit y spironolact one 50 mg oral tablet 1 tab(s), Oral, BID, # 180 tab(s), 3 total refill(s ), [facility], Pharmacy : [facility] Oral (given by mouth) Ordered 180.0 0010C-D [facility] Allergies, Adverse Reactions, Alerts Combined list of allergies from Department of [facility] and [facility] facilities. It does not include entries that were removed or entered in error. Substance Category Reaction Severity Reaction type Status Date Reported Comments Source MACADAMIA NUT OIL {Cla } Propensity to adverse reactions to substance Nausea Active 9 Ambulatory Pharmacy Immunizations Combined list of available immunizations from the Department of [facility] and [facility] facilities. Immunization Series Date Given Administered By Site Reaction Lot Number CVX Code Drug Clinical Nurse Occupational Medicine Status Comments Source varicella virus vaccine 2018 zzRig Arm [id number] Merck [employer] Company Inc complet ed varicella virus vaccine 07/24/18 Given Ambulat ory Pharmac y hepatitis A-hepatitis B vaccine 2018 zzLef t Arm [id number] GlaxoSmithKli ne complet ed hepatitis A-hepatit is B vaccine 07/24/18 Given Ambulat ory Pharmac y measles/mumps /rubella virus vaccine [facility] [id number] Merck & Company Inc complet ed measles/m umps/rube lla virus vaccine 07/24/18 Given Ambulat ory Pharmac y measles, mumps and rubella virus vaccine 1 2018 Unknown, Provider [id number] 03 Merck (MSD) complet ed measles, mumps and rubella virus vaccine DoD varicella virus vaccine 1 2018 Unknown, Provider [id number] 21 Merck (MSD) complet ed varicella virus vaccine DoD hepatitis A and hepatitis B vaccine 1 2018 Unknown, Provider [id number] SmithKline (SKB) complet ed hepatitis A and hepatitis B vaccine DoD influenza, injectable, quadrivalent- pf 2018 [facility] [id number] 150 Seqirus complet ed influenza , injectabl e, quadrival ent-pf 07/09/18 Given Ambulat ory Pharmac y tetanus, diphtheria, acellular pertu is 2018 zzLef t Arm [id number] 115 GlaxoSmithKli ne complet ed tetanus, diphtheri a, acellular pertussis 07/09/18 Given Ambulat ory Pharmac y poliovirus vaccine, inactivated 2018 [facility] Arm 10 sanofi pasteur complet ed polioviru [...] quadrivalent, preservative free 1 2018 Unknown, Provider [id number] 150 Seqirus (SEQ) complet ed Influenza , injectabl e, quadrival ent, preservat ken free DoD Encounters Combined list of: 1) Encounters from Department of Veterans Affairs facilities going backup to the last 18 months, not all VA inpatient encounters are included; 2) Encounters from the Department of Defense facilities going backup to 280 months. Location Location Details Encounter Type Encounter Number Reason For Visit Attending Provider ADM Date DC Date Status Disposition Source [facility]) OUTPATIENT [id number] CONTROL DWAYNEAHMETLUCIANO D 04/27 Released w/o Limitations [facility] [employer]([facility]) [facility]) OUTPATIENT [id number] SWITCH BC DWAYNEAHMETLUCIANO D 02/03 Released w/o Limitations [facility] [employer]([facility]) [facility]) OUTPATIENT [id number] adal insert AHMET RICENIRIVER Collier 02/11 Released w/o Limitations [facility] [employer]([facility]) [facility](Debra pedroza_[facility] _Team_Lob o) TELE CONSULT [id number] Notes Entered by: ANDREW YANES I 03 Mar 2016 1145 ------- ------- ------- ------- -- URGENT CARE PABLO JUAREZ 03/[address] [facility] [employer] [employer](Sree christy _[facility]_Te am_Lobo ) [facility] [employer] [employer]([facility]) OUTPATIENT [id number] RE IUD LUCIANO RICE 03/10 Released w/o Limitations [address] [place] [address]([facility]) [facility]) OUTPATIENT [id number] iud check, crampin g and bleedin g TELMA URIBE 05/27 Released w/o Limitations [facility] [employer] [employer]([facility]) [facility]) OUTPATIENT [id number] Pap / Ultraso und result - Resched TELMA Crews 06/17 Released w/o Limitations [facility] [employer] [employer]([facility]) [facility](BRITTANY Castillo) OUTPATIENT [id number] check for allergi es, discuss vaccina tions BELOKIN, ANGELICA W 07/06 Released w/o Limitations [facility] [employer]) [facility] [employer]([facility]) TELE CONSULT [id number] Notes Entered by: KALI GONZALEZ 19 Jul 2018 1516 ------- ------- ------- ------- -- Lab result SONJA SRERA 07/19 [facility] [employer]) [facility]) TELE CONSULT [id number] Notes Entered by: KOBE BROOKS 09 Jan 2019 0940 ------- ------- ------- ------- -- OTHER/I UD REMOVAL AND REPLACE UBALDO BLANCHARD 01/09 Referred for Appointment [facility] [employer] [employer]([facility]) [facility] [employer] [employer]([facility]) OUTPATIENT [id number] current ly has adal martin consult for kyleena vs SUAD Arevalo 02/06 Released w/o Limitations [facility] [employer] [employer]([facility]) [facility] [employer] [employer]([facility]) OUTPATIENT [id number] IUD replace SUAD Barboza 02/14 Released w/o Limitations [facility] [employer] [employer]([facility]) [facility] [employer] [employer]([facility]) TELE CONSULT [id number] Notes Entered by: SUAD HUFFMAN 25 Feb 2019 1215 ------- ------- ------- ------- -- lab results SOFI LARA 02/25 Referred for Appointment [facility] [employer] [employer]([facility]) [facility] [employer] [employer]([facility]) OUTPATIENT [id number] IUD check/p ap smear SUAD HUFFMAN 04/05 Released w/o Limitations [facility] [employer] [employer]([facility]) [facility]) TELE CONSULT [id number] Notes Entered by: SUAD HUFFMAN 17 Apr 2019 0955 ------- ------- ------- ------- -- pap results LAURENT MCKEON 04/17 Released to Self Care [facility]) [facility]) OUTPATIENT [id number] Notes Entered by: LEXIE CLARK 01 Aug 2019 0955 ------- ------- ------- ------- -- Walk-in UTI SHAN LOPEZ 07/31 Released w/o Limitations [facility] [place] [place]) TELE CONSULT [id number] Notes Entered by: HILTON LOPEZ 01 Aug 2019 1442 ------- ------- ------- ------- -- Vaginal dischar ge and SONJA David 07/31 Advice Assessment [facility] [place]) [facility] [place] TELE CONSULT [id number] Notes Entered by: HILTON LOPEZ 02 Aug 2019 1455 ------- ------- ------- ------- -- Urine Culture Results SHAN LOPEZ 08/01 [facility] [place]) [facility] [place]) TELE CONSULT [id number] Notes Entered by: HILTON LOPEZ 06 Aug 2019 0812 ------- ------- ------- ------- -- Lab Results SONJA SERRA 08/05 Other Not Elsewhere Classified [facility] [place] [place]) TELE CONSULT [id number] Notes Entered by: Telma SERRA 07 Aug 2019 0711 ------- ------- ------- ------- -- MARSHALL secure message to cancel rajinderSHAN Wright Tina 08/06 [employer]) Procedures Combined list of: 1) Procedures from Department of Veterans Affairs facilities going back up to thelast 18 months, not all VA non-surgical procedures are included; 2) All procedures from the Department of Defense facilities. Procedure Procedure Type Code Date Perfomer Comments Sourc e Internet Med Svc Qual Nonphys Healthcare Prof Up To 7 Days Estab Patient Internet Med Svc Qual Nonphys Healthcare Prof Up To 7 Days Estab Patient 75941 9 SOFI LARA [facility] Screening papanicolaou smear; obtaining, preparing and conveyance of cervical or vaginal smear to laboratory 7 TELMA URIBE [facility] Gynecologic Services Intrauterine Device (IUD) Insertion Gynecologic Services Intrauterine Device (IUD) Insertion 29655 6 LUCIANO RICE [facility] Urine HCG, Test Urine HCG, Test 65632 6 LUCIANO RICE [facility] Non-Physician Phone Call To Patient/Provider Brief (5-10min) Non-Physician Phone Call To Patient/Provider Brief (5-10min) 22017 UBALDO MCGUIRE [facility] Preventive Med Performance Of Chlamydia And Gonorrhea Screenings Documented Preventive Med Performance Of Chlamydia And Gonorrhea Screenings Documented 3511F SUAD HUFFMAN [facility] Account General Manager Services Intrauterine Device (IUD) Removal Hormone-Releasing Account General Manager Services Intrauterine Device (IUD) Removal Hormone-Releasing 98214 SUAD HUFFMAN [facility] Account General Manager Services Intrauterine Device (IUD) Insertion Hormone-Releasing Account General Manager Services Intrauterine Device (IUD) Insertion Hormone-Releasing 19513 SUAD HUFFMAN [facility] Screening papanicolaou smear; obtaining, preparing and conveyance of cervical or vaginal smear to laboratory SUAD HUFFMAN [facility] INSERTION OF INTRAUTERINE DEVICE (IUD) 6 [facility] SCREENING PAPANICOLAOU SMEAR; OBTAINING, PREPARING AND CONVEYANCE OF CERVICAL OR VAGINAL SMEAR TO LABORATORY 0 [facility] ONLINE ASSESS &MANAG SERV PROVIDE,A QUAL NONPHYS HCP TO AN ESTABLISHED PAT/GUARDIAN,NOT ORIGINAT FR RELAT ASSESS &MANAG SERV PROVIDE W/IN THE PREV 7 DAYS,USE THE INTERNET/SIMILAR [employer]WORK 9 DoD INSERTION OF INTRAUTERINE DEVICE (IUD) 9 DoD TELE ASSESS & MGT SRV PROV QUAL NONPHYS HLTH CARE PRO TO EST PAT,PARENT,GUARD NOT ORIG REL ASSESS & MGT SRV PROV W/IN PREV 7 DAYS NOR LEAD ASSESS & MGT SRV/PX W/IN NXT 24 HR/SOON APT;5-10 MIN MED DIS 9 DoD SCREENING PAPANICOLAOU SMEAR; OBTAINING, PREPARING AND CONVEYANCE OF CERVICAL OR VAGINAL SMEAR TO LABORATORY 7 DoD No data available for this section Ambulato ry Pharmacy Social History Combined list of available smoking, tobacco, and other social history from Department of Defense and Veterans Affairs facilities. Social History Type Response Date Comment Sourc e Female 06/08/2020 Ambulatory Pha rmacy This section is an empty soc ial history section. [facility] Sexual Orientation Ambula tory Pharmacy Gender identity Ambulator y Pharmacy Assessment and Plan Combined list of future care activities from Department of Defense and Veterans Affairs facilities (e.g., assessment and plan notes, appointments, orders, and referrals). Additional future care activities may be listed in the Plan of Care section. Result Assessment and Plan Date Source Assessment and Plan No data available for this section 05/06/2024 Ambulatory Pharmacy Functional Status Combined list of recent functional and cognitive assessments recorded at Department of Defense and Veterans Affairs (VA).VA Functional [place] Measurement (FIM) Scale: 1 = Total Assistance (Subject = 0% +), 2 = Maximal Assistance (Subject = 25% +), 3 = Moderate Assistance (Subject = 50% +), 4 = Minimal Assistance (Subject = 75% +), 5 = Supervision, 6 = Modified [place] (Device), 7 = Complete [place] (Timely, Safely). Assessment Date/Time Source Assessment Type Assessment Skill Assessment Score Assessment Details No data available for this section
== END 2024-05-06 14:46 | disposition home or self-care (01) ==
PROVIDERS: PCP Family Medicine; Visit Provider Advanced Practice Midwife
DX: Z01.419 Encounter for gynecological examination (general) (routine) without abnormal findings (principal); Z30.433 Encounter for removal and reinsertion of intrauterine contraceptive device; Z32.02 Encounter for pregnancy test, result negative
CPT/HCPCS: 58300; 58301; 99395; 99459

== ENCOUNTER → 2024-05-06 13:54 | Outpatient (BNVA) | payer OTHER, SELFPAY | PROVIDERS: PCP Family Medicine; Visit Provider Advanced Practice Midwife | DX: Z30.433 Encounter for removal and reinsertion of intrauterine contraceptive device (principal); Z01.419 Encounter for gynecological examination (general) (routine) without abnormal findings | CPT/HCPCS: 58300; 58301; 81025; 99395; 99459; J7298 ==

== ENCOUNTER 2024-06-27 07:58 | Outpatient (REF) | payer OTHER, SELFPAY ==
--- OUTSIDE RECORDS SUMMARY | 2024-06-27 08:02 | XMS_ITS | Continuity of Care Document ---
Author Name [facility] Organization [facility] Care Team Providers Care Bottle Dealer Name Role Phone [facility] Unavailable Unavailable Medications Combined list of outpatient medications from Department of Defense and Veterans Affairs facilities.Medications provided include 1) outpatient medications from the last 15 months, and 2) patient-reported medications. Medication Details Route Status Patient Instructions Prescription Expires Prescription Number Last Dispense Date Ordering Provider Order Date Order Qty Source cephalexin 500 mg oral tablet 0 total refill(s ) Ordered 2020 No Facilit y Access spironolact one 50 mg oral tablet 1 tab(s), Oral, BID, # 180 tab(s), 3 total refill(s ), Bonnie claros, Pharmacy : [facility] Oral (given by mouth) Ordered 2020 180.0 0010C-D [facility] Allergies, Adverse Reactions, Alerts Combined list of allergies from Department of Defense and Veterans Affairs facilities. It does not include entries that were removed or entered in error. Substance Category Reaction Severity Reaction type Status Date Reported Comments Source MACADAMIA NUT OIL {Cla } Propensity to adverse reactions to substance Nausea Active 9 Unknown Organization Immunizations Combined list of available immunizations from the Department of Defense and Veterans Affairs facilities. Immunization Series Date Given Administered By Site Reaction Lot Number CVX Code Drug Creel Selector Status Comments Source [facility]icella virus vaccine [facility] [id number] Mer[employer] Company Inc complet ed varicella virus vaccine 07/24/18 Given Ambulat ory Pharmac y hepatitis A-hepatitis B vaccine 2018 zzLtila t Arm [id number] [employer] ne complet ed hepatitis A-hepatit is B vaccine 07/24/18 Given Ambulat ory Pharmac y measles/mumps /rubella virus vaccine 2018 zzRig ht Arm [id number] Merck [employer] Company Inc complet ed measles/m umps/rube lla virus vaccine 4/30/19 Given Ambulat ory Pharmac y influenza, injectable, quadrivalent- pf 2018 zzRig ht Arm [id number] Seqirus complet ed influenza , injectabl e, quadrival ent-pf 07/09/18 Given Ambulat ory Pharmac y tetanus, diphtheria, acellular pertu is 2018 zzLef t Arm [id number] GlaxoSmithKli ne complet ed tetanus, diphtheri a, acellular pertussis 07/09/18 Given Ambulat ory Pharmac y poliovirus vaccine, inactivated 2018 zzRig ht Arm 10 sanofi pasteur complet ed polioviru s vaccine, inactivat ed 07/09/18 Given Ambulat ory Pharmac y Procedures Combined list of: 1) Procedures from Department of Veterans Affairs facilities going back up to thelast 18 months, not all [place] non-surgical procedures are included; 2) All procedures from the Department of Defense facilities. Procedure Procedure Type Code Date Perfomer Comments Sourc e No data available for this section Ambulatory P harmacy Social History Combined list of available smoking, tobacco, and other social history from Department of Defense and Veterans Affairs facilities. Social History Type Response Date Comment Sourc e Sex Representation Female (finding) 06/08/2020 Unknown Organization Sexual Orientation Ambula tory Pharmacy Gender identity [...] Plan No data available for this section 06/27/2024 Ambulatory Pharmacy Functional Status Combined list of recent functional and cognitive assessments recorded at [facility] and [facility] [place] Functional [place] Measurement (FIM) Scale: 1 = Total Assistance (Subject = 0% +), 2 = Maximal Assistance (Subject = 25% +), 3 = Moderate Assistance (Subject = 50% +), 4 = Minimal Assistance (Subject = 75% +), 5 = Supervision, 6 = Modified [place] (Device), 7 = Complete [place] (Timely, Safely). Assessment Date/Time Source Assessment Type Assessment Skill Assessment Score Assessment Details No data available for this section
[2024-06-27 12:38] LABS: Alanine Aminotransferase 25 U/L (0-31); Albumin Level 4.6 g/dL (3.5-5.0); Alkaline Phosphatase 58 U/L (39-117); Anion Gap 10 (12-20); Aspartate Amino Transferase 28 U/L (5-31); Bilirubin Total 0.9 mg/dL (0.0-1.0); Blood Urea Nitrogen 14 mg/dL (9-16); Calcium 9.8 mg/dL (8.4-10.2); Carbon Dioxide 26 mmol/L (22-29); Chloride 106 mmol/L (96-108); Cholesterol 196 mg/dL (<200); Estimated Glomerular Filt Rate > 60; Glucose Fasting 86 mg/dL (60-99); HDL Cholesterol 55 mg/dL (>40); LDL Cholesterol Calculated 128 mg/dL (<100); Potassium 4.3 mmol/L (3.3-5.1); Sodium 138 mmol/L (135-145); Triglycerides 65 mg/dL (<150)
== END 2024-06-27 07:59 | disposition home or self-care (01) ==
LOC: HO.WFDLDS 07:58
PROVIDERS: Visit Provider Family Medicine
DX: Z00.00 Encounter for general adult medical examination without abnormal findings (principal); E78.00 Pure hypercholesterolemia, unspecified
CPT/HCPCS: 36415; 80053; 80061

== ENCOUNTER 2024-07-02 15:31 | Outpatient (AMB) | payer OTHER, SELFPAY ==
--- NOTE | 2024-07-02 15:39 | MHC.PC.OV ---
Vital Signs 07/02/24 15:50 Height 5 ft 7 in Weight 143 lb 2 oz BMI 22.4 BP 120/70 Blood Pressure Location Rt brachial Position Sitting Respiration 16 Pulse 92 Pulse Source Pulse Oximeter Temp 98.8 F Temp Source Oral Pulse Oximetry (%) 98 Oxygen Delivery Method Room Air Intake Visit Reasons: Referral Intake Note: patient is here to discuss psych referral with pcp Free Lance Artist Required: No Allergies macadamia nut Allergy (Mild, Verified 07/02/24 15:46) Anaphylaxis Medication List - Last Reconciled 07/02/24 by Levon Cartwright MD bupropion HCl 75 mg PO BID 30 days fluticasone propionate 0.05% 1 appl topical DAILY levonorgestrel (Mirena) intrauterine spironolactone 50 mg PO BID tretinoin 0.05% appl topical BID Tobacco use date assessed: 02/23/23 Dental Screening Dental Screen Date: 02/23/23 HPI Referral HPI Details 33 y/o female presents today with complaints of depression/anxiety. She notes worsening mood and questions mood swings involving her relationships. PHQ-9 5, HILDA-7 2 today. She reports difficulty concentrating. [facility] Medical History Screening for cervical cancer No pertinent past medical history Surgical History [place] teeth removed Family History Other Mental health disorder Social History Housing: House Alcohol intake: current Alcohol intake frequency: holidays/special occasions only Patient Tobacco Use Status: Never used Tobacco e-Cigarette/Vaping Use: Never Used Second Hand Smoke Exposure: No service: No Current occupational status: unemployed Current occupational exposures/hazards: No Cognitive needs: No Hearing needs: No Vision needs: No Female Reproductive History Menstrual Age of Menarche: 16 Questionnaire PHQ-9 Over the last 2 weeks, how often have you been bothered by any of the following problems? 1. Little interest or pleasure in doing things: several days 2. Feeling down, depressed, or hopeless: several days 3. Trouble falling or staying asleep, or sleeping too much: not at all 4. Feeling tired or having little energy: several days 5. Poor appetite or overeating: not at all 6. Feeling bad about yourself - or that you are a failure or have let yourself or your family down: several days 7. Trouble concentrating on things, such as reading the newspaper or watching television: several days 8. Moving or speaking so slowly that other people could have noticed. Or the opposite - being so fidgety or restless that you have been moving around a lot more than usual: not at all 9. Thoughts that you would be better off or of hurting yourself in some way: not at all Total score: 5 Depression Screening Interpretation: Positive Depression Screening Done: Yes 67135 - PHQ-9 Billing: Yes Source: Developed by Drs. Lul Celestin, Caitlin Claire, Dennis Kilpatrick and colleagues, with an educational dario from [employer]. Thrive Questionnaire Date Thrive assessed: 02/23/23 I am a: Patient What is your living situation today?: I have a steady place to live Within the past 12 months, did the food you bought not last and you didn't have the money to get more?: Never true Within the past 12 months, did you worry whether your food would run out before you got money to buy more?: Never true Do you have trouble paying for medicines?: No Do you have trouble getting transportation to medical appointments?: No Do you have trouble paying your heating and electricity bill?: No Do you have trouble taking care of your child, family member or friend?: No Do you have trouble with day-to-day activities such as bathing, preparing meals, shopping, managing finances, etc.?: No Are you currently unemployed and looking for a job?: No Are you interested in more education?: Yes Please select the resources that you would like help with: None Currently or been in a relationship where the following occur: No concerns reported THRIVE Score: 0 AUDIT C Alcohol Use Questionnaire (AUDIT-C) 1. How often do you have a drink containing alcohol?: 2-4 times a month 2. How many drinks containing alcohol do you have on a typical day when you are drinking?: 1 or 2 3. How often do you have six or more drinks on one occasion?: Less than monthly Total Score: 3 HILDA-7 AMB Questionnaire HILDA-7 Date HILDA - 7 assessed: 07/02/24 Feeling nervous, anxious, or on edge: 1 = Several days Not being able to stop or control worryin = Not at all Worrying too much about different things: 0 = Not at all Trouble relaxin = Not at all Being so restless that it is hard to sit still: 0 = Not at all Becoming easily annoyed or irritable: 0 = Not at all Feeling afraid as if something awful might happen: 1 = Several days Total HILDA-7 score (0-4 normal; 5-9 mild; 10-14 moderate; 15-21 severe): 2 Source: Developed by Drs. Lul Celestin, Caitlin Claire, Dennis Kilpatrick and colleagues, with an educational dario from [employer]. HILDA-7 Assessment Billing HILDA-7 Assessment Tool: HILDA-7 Assessment 26096 Review of Systems Const Denies chills, Denies fatigue, Denies fever(s), Denies headache(s) and Denies weakness ENT Denies dizziness and Denies headache(s) Card Denies dyspnea Resp Denies cough, Denies dyspnea, Denies wheezing and Denies other (shortness of breath) Musc Denies numbness and Denies tingling Neuro Denies dizziness, Denies headache(s), Denies numbness, Denies tingling and Denies weakness Psych Denies anxiety and Denies depression Endo Denies fatigue Aller/Immun Denies wheezing Physical exam (Primary Care) Vital Signs: Last Vital Signs Temp 98.8 F 07/02/24 15:50 Pulse 92 07/02/24 15:50 Resp 16 07/02/24 15:50 BP 120/70 07/02/24 15:50 Pulse Ox 98 07/02/24 15:50 Oxygen Delivery Method Room Air 07/02/24 15:50 BMI result Body Mass Index 22.4 Tobacco/Smoking Status: Tobacco use Status Tobacco use date assessed 02/23/23 07/02/24 15:44 Patient Tobacco Use Status Never used Tobacco 07/02/24 15:44 e-Cigarette/Vaping Use Never Used 07/02/24 15:44 PHQ-9: PHQ-9 Score PHQ-9: Total score 5 07/02/24 15:44 Depression Screening Interpretation: Positive Thrive Assessment: Date of Thrive Assessment Date Thrive assessed 02/23/23 07/02/24 15:44 Currently or been in a relationship where the following occur: No concerns reported Const General: well developed; No acute distress Nutritional Appearance: well nourished Orientation/consciousness: patient oriented x3 HENMT Head: Yes normocephalic and Yes atraumatic Eyes General: appearance normal, both eyes and all related structures Pupils: Equal, round and reactive pupils present EOM: EOMs intact bilaterally Resp Effort & Inspection: normal respiratory effort Neuro General: patient oriented x3 and gait normal Cranial nerves: Yes Equal, round and reactive pupils present Psych Affect: normal affect Coding Level of Care Code Est Pt Level 4 (64593) Diagnoses Depression with anxiety F41.8 Difficulty concentrating R41.840 Hypercholesterolemia E78.00 Additional Codes HILDA-7 Assessment Billing - HILDA-7 Assessment Tool: HILDA-7 Assessment 51558 ([id number]) PHQ-9 - 74572 - PHQ-9 Billing: Yes ([id number]) Assessment & Plan Assessment & Plan (1) Depression with anxiety: Code(s): F41.8 - Other specified anxiety disorders Category: Medical Plan: Anxiety?and?depression?and?difficulty?concentrating. No?SI/HI Has?never?tried?medication?for?anxiety?depression?has?never?a?diagnosis?of?this?in?the?past. No?family?history?of?bipolar?disorder.??No personal?history?of?lack?of?need?for?sleep, racing?thoughts?or?risky?behaviors. Will?trial?bupropion.??May?help?concentration?as?well?anxiety?and?depression. Will?refer?to?[facility]?psychiatric?consult?team. Also?encouraged?exercise (2) Difficulty concentrating: Code(s): R41.840 - Attention and concentration deficit Category: Medical Plan: Patient?has?some?family?members?with?history?of?ADD. Refer?to?[facility]?psychiatric?consult?team?for?evaluation Can?also?try?bupropion?while?waiting?for?an?evaluation. (3) Hypercholesterolemia: Code(s): E78.00 - Pure hypercholesterolemia, unspecified Category: Medical Plan: Elevated?LDL?cholesterol HDL?is?good?and?HDL?ratios?are?good. No?indication?for?medicine?at?this?time?recommended?a?diet?lower?in?saturated?fats?and?cholesterol.??Recommended?exercise. Plan Patient?had?also?noted?some?relationship?problems. Offered?family?counseling?but?she?declines?this?for?now.??Let?her?know?this?is?available?if?needed but this seems resolved. Orders: Referrals Psychiatry Outpatient Consultation Service F41.8 - Other specified anxiety disorders, R41.840 - Attention and concentration deficit Medications: New bupropion HCl 75 mg PO BID 30 days 60 tabs 1RF
[2024-07-02 15:50] VITALS: BP 120/70; PULSE 92; RESP 16; TEMP 37.1; O2SAT 98; BMI 22.4
--- OUTSIDE RECORDS SUMMARY | 2024-07-02 18:31 | XMS_ITS | Continuity of Care Document ---
Author Name [facility] Organization [facility] Care Team Providers Care Optical Element Coater Name Role Phone [facility] Unavailable Unavailable Medications Combined list of outpatient [...] total refill(s ), Bonnie claros, Pharmacy : [facility] Oral (given by mouth) Ordered 2020 180.0 0010C-D [facility] Allergies, Adverse Reactions, Alerts Combined list of [...] Site Reaction Lot Number CVX Code Drug Fine Arts Chair Status Comments Source [facility] [id number] Merck & Company Inc complet ed varicella virus vaccine 07/24/18 Given Ambulat ory Pharmac y hepatitis A-hepatitis B vaccine 2018 zzLtila t Arm [id number] [employer] complet ed hepatitis A-hepatit is B vaccine 07/24/18 Given Ambulat ory Pharmac y measles/mumps /rubella virus vaccine 2018 zzRig ht Arm [id number] 03 Merck & Company Inc complet ed measles/m umps/rube lla virus vaccine 4/30/19 Given Ambulat ory Pharmac y influenza, injectable, quadrivalent- pf 2018 zzRig ht Arm [id number] Seqirus complet ed influenza , injectabl [...] up to thelast 18 months, not all [place] non-surgical procedures are included; 2) All procedures [...] Plan No data available for this section 07/02/2024 Ambulatory Pharmacy Functional Status Combined list of recent functional and cognitive assessments recorded at [facility] [place] Functional [place] Measurement (FIM) Scale: 1 = Total Assistance (Subject = 0% +), 2 = Maximal Assistance (Subject = 25% +), 3 = Moderate Assistance (Subject = 50% +), 4 = Minimal Assistance (Subject = 75% +), 5 = Supervision, 6 = Modified [place] (Device), 7 = Complete [place] (Timely, Safely). Assessment Date/Time Source Assessment Type Assessment Skill Assessment Score Assessment Details No data available for this section
== END 2024-07-02 16:13 | disposition home or self-care (01) ==
LOC: HO.HMCFM 15:32
PROVIDERS: PCP Family Medicine; Visit Provider Family Medicine
DX: F41.8 Other specified anxiety disorders (principal); R41.840 Attention and concentration deficit; E78.00 Pure hypercholesterolemia, unspecified

== ENCOUNTER → 2024-07-02 15:31 | Outpatient (BNVA) | payer OTHER, SELFPAY | PROVIDERS: PCP Family Medicine; Visit Provider Family Medicine | DX: F41.8 Other specified anxiety disorders (principal); R41.840 Attention and concentration deficit; E78.00 Pure hypercholesterolemia, unspecified; F41.9 Anxiety disorder, unspecified; F32.A Depression, unspecified | CPT/HCPCS: 96127; 99212 ==

== ENCOUNTER 2024-08-07 13:48 | Outpatient (AMB) | payer OTHER, SELFPAY ==
--- NOTE | 2024-08-07 13:43 | A.OFFPC_ITS ---
Intake Visit Reasons: f/u anxiety/depression/[phone] Allergies macadamia nut Allergy (Mild, Verified 08/07/24 13:43) Anaphylaxis Tobacco use date assessed: 02/23/23 Dental Screening Dental Screen Date: 02/23/23 HPI f/u anxiety/depression/[phone] HPI Details Patient?presents?to?follow-up?anxiety?depression?in?bupropion?therapy Had?given?her?a?script?for?bupropion?75?mg?b.i.d.. She?has?been?taking?75?mg?once?a?day?but?says?she?has?not?noticed?really?any?imp rovement?and?wanted?to?wait?until?today?to?de termine?whether?she?would?increase?to?b.i.d.?dose Had?referred?her?to?[facility]?psychiatric?consult?team?but?she?has?not?heard?from?them ?yet [facility] Medical History Screening for cervical cancer No pertinent past medical history Surgical History [place] teeth removed Family History Other Mental health disorder Social History Housing: House Alcohol intake: current Alcohol intake frequency: holidays/special occasions only Patient Tobacco Use Status: Never used Tobacco e-Cigarette/Vaping Use: Never Used Second Hand Smoke Exposure: No service: No Current occupational status: unemployed Current occupational exposures/hazards: No Cognitive needs: No Hearing needs: No Vision needs: No Female Reproductive History Menstrual Age of Menarche: 16 Questionnaire Thrive Questionnaire Date Thrive assessed: 06/25/24 I am a: Patient What is your living situation today?: I have a steady place to live Within the past 12 months, did the food you bought not last and you didn't have the money to get more?: Never true Within the past 12 months, did you worry whether your food would run out before you got money to buy more?: Never true Do you have trouble paying for medicines?: No Do you have trouble getting transportation to medical appointments?: No Do you have trouble paying your heating and electricity bill?: No Do you have trouble taking care of your child, family member or friend?: No Do you have trouble with day-to-day activities such as bathing, preparing meals, shopping, managing finances, etc.?: No Are you currently unemployed and looking for a job?: No Are you interested in more education?: Yes Please select the resources that you would like help with: None Currently or been in a relationship where the following occur: No concerns reported THRIVE Score: 0 HILDA-7 AMB Questionnaire HILDA-7 Date HILDA - 7 assessed: 07/02/24 Source: Developed by Drs. uLl Celestin, Caitlin Claire, Dennis Kilpatrick and colleagues, with an educational dario from [employer]. Review of Systems Const Denies chills, Denies fatigue, Denies fever(s), Denies headache(s) and Denies weakness ENT Denies dizziness and Denies headache(s) Card Denies chest pain, Denies lightheadedness, Denies dyspnea and Denies other (Palpitations) Resp Denies cough, Denies dyspnea, Denies wheezing and Denies other ( shortness of breath) Musc Denies numbness and Denies tingling Neuro Denies dizziness, Denies headache(s), Denies numbness, Denies tingling, Denies paresthesias and Denies weakness Psych Reports anxiety, Reports depression and Denies suicidal ideation Endo Denies fatigue Aller/Immun Denies wheezing Physical exam (Primary Care) Tobacco/Smoking Status: Tobacco use Status Tobacco use date assessed 02/23/23 08/07/24 13:44 Patient Tobacco Use Status Never used Tobacco 08/07/24 13:44 e-Cigarette/Vaping Use Never Used 08/07/24 13:44 Thrive Assessment: Date of Thrive Assessment Date Thrive assessed 06/25/24 08/07/24 13:44 Currently or been in a relationship where the following occur: No concerns reported Telehealth Telehealth Telehealth Platform: Telephone Location of provider rendering services: practice address Location of patient: address on file Patient Identification confirmed using: Name, : Yes Telehealth method: voice only Patient verbally consented to treatment: Yes Patient verbally consented to billing insurance company: Yes Patient informed of any privacy concerns related to visit: Yes Minutes spent on Phone/Video with Pt.: 6 Coding Level of Care Code Tele Est Pt Level 2 (24715) Diagnoses Depression with anxiety F41.8 Hypercholesterolemia E78.00 Assessment & Plan Assessment & Plan (1) Depression with anxiety: Code(s): F41.8 - Other specified anxiety disorders Category: Medical (2) Hypercholesterolemia: Code(s): E78.00 - Pure hypercholesterolemia, unspecified Category: Medical Plan She?will?increase?bupropion?from?75?mg?once?daily?to?75?mg?b.i.d. Will?ask?office?staff?to?check?on?the?status?of?referral?to?Psychiatry/therapy She?will?return?in?about?2?months?to?recheck?lipids.
--- OUTSIDE RECORDS SUMMARY | 2024-08-07 13:50 | XMS_ITS | Continuity of Care Document ---
Author Name [facility] Organization [facility] Care Team Providers Care Cinder Pitman Name Role Phone [facility] Unavailable Unavailable Problems Combined list of problems from Department of Defense and [facility] facilities. It does not include entries [...] 180 tab(s), 3 total refill(s ), [facility], Pharmacy : [facility] Oral (given by mouth) Ordered 1 2020 180.0 0010C-D [facility] Allergies, Adverse Reactions, Alerts Combined list of allergies from Department of Defense and [facility] facilities. It does not include entries [...] Site Reaction Lot Number CVX Code Drug Construction Estimator Status Comments Source varicella virus vaccine 2018 Elena willard Arm [id number] [employer] complet ed varicella virus vaccine 07/24/18 Given Ambulat ory Pharmac y hepatitis A-hepatitis B vaccine 2018 Armand t Arm [id number] Thing [employer] ne complet ed hepatitis A-hepatit is B vaccine 07/24/18 Given Ambulat ory Pharmac y measles/mumps /rubella virus vaccine 2018 zzRig ht Arm [id number] [employer] complet ed measles/m umps/rube lla virus vaccine 07/24/18 Given Ambulat ory Pharmac y measles, mumps and rubella virus vaccine 1 2018 Unknown, Provider [id number] Merck (MSD) complet ed measles, mumps and rubella virus vaccine DoD varicella virus vaccine 1 2018 Unknown, Provider [id number] 21 Merck (MSD) complet ed varicella virus vaccine DoD hepatitis A and hepatitis B vaccine 1 2018 Unknown, Provider [id number] [employer] (SKB) complet ed hepatitis A and hepatitis B vaccine DoD influenza, injectable, quadrivalent- pf 2018 zzRig ht Arm [id number] Seqirus complet ed influenza , injectabl [...] adsorbed 1 2018 Unknown, Provider [id number] [facility] complet ed tetanus toxoid, reduced diphtheri a toxoid, and acellular pertussis vaccine, adsorbed DoD Influenza, injectable, quadrivalent, preservative free 1 2018 Unknown, Provider [id number] 150 Seqirus (SEQ) complet ed Influenza , [...] ADM Date DC Date Status Disposition Source [facility]) OUTPATIENT [id number] CONTROL LUCIANO RICE Amira 04/27 Released w/o Limitations [facility]) [facility]) OUTPATIENT [id number] SWITCH BC LUCIANO RICE Amira 02/03 Released w/o Limitations [facility]) [facility]) OUTPATIENT [id number] adal insert LUCIANO RICE Amira 02/11 Released w/o Limitations [facility]) [facility] _Team_Lob o) TELE CONSULT [id number] Notes Entered by: ANDREW YANES I 03 Mar 2016 1145 ------- ------- ------- ------- -- URGENT CARE PABLO JUAREZ 03/03 Referred for Appointment [facility]([place] _[facility]_Te am_Lobo ) [facility]) OUTPATIENT [id number] RE IUD LUCIANO RICE Amira 03/10 Released w/o Limitations [facility]) [facility]) OUTPATIENT [id number] iud check, crampin g and bleedin g TELMA URIBE 05/27 Released w/o Limitations [facility]) [facility]) OUTPATIENT [id number] Pap / Ultraso und result - Resched TELMA Crews 06/17 Released w/o Limitations [facility]) [facility]) OUTPATIENT [id number] check for allergi es, discuss vaccina ANGELICA Devine W 07/06 Released w/o Limitations [facility] [employer]([facility]) [facility] ) TELE CONSULT [id number] Notes Entered by: KALI GONZALEZ 19 Jul 2018 1516 ------- ------- ------- ------- -- Lab result SONJA SERRA 07/19 [facility] [employer]([facility]) [facility] [employer]([facility]) TELE CONSULT [id number] Notes Entered by: KOBE BROOKS 09 Jan 2019 0940 ------- ------- ------- ------- -- OTHER/I UD REMOVAL AND REPLACE MENT UBALDO MCGUIRE 01/09 Referred for Appointment [facility]) [facility]) OUTPATIENT [id number] current ly has adal mancinis consult for kyleena vs mirena SUAD HUFFMAN 02/06 Released w/o Limitations [facility]) [facility]) OUTPATIENT [id number] IUD replace ment SUAD HUFFMAN 02/14 Released w/o Limitations [facility]) [facility]) TELE CONSULT [id number] Notes Entered by: SUAD HUFFMAN 25 Feb 2019 1215 ------- ------- ------- ------- -- lab results SOFI LARA 02/25 Referred for Appointment [facility]) [facility]) OUTPATIENT [id number] IUD check/p ap smear SUAD HUFFMAN 04/05 Released w/o Limitations [facility]) [facility]) TELE CONSULT [id number] Notes Entered by: SUAD HUFFMAN 17 Apr 2019 0955 ------- ------- ------- ------- -- pap results LAURENT MCKEON 04/17 Released to Self Care [facility]) [facility]) OUTPATIENT [id number] Notes Entered by: LEXIE CLARK 01 Aug 2019 0955 ------- ------- ------- ------- -- Walk-in UTI SHAN LOPEZ 07/31 Released w/o Limitations [facility] [place] [place] TELE CONSULT [id number] Notes Entered by: HILTON LOPEZ 01 Aug 2019 1442 ------- ------- ------- ------- -- Vaginal dischar ge and SONJA David 07/31 Advice Assessment [facility](D [facility] [place]) [facility] [place] TELE CONSULT [id number] Notes Entered by: HILTON LOPEZ 02 Aug 2019 1455 ------- ------- ------- ------- -- Urine Culture Results SHAN LOPEZ 08/01 [facility] [place] [place] TELE CONSULT [id number] 1 Notes Entered by: HILTON LOPEZ 06 Aug 2019 0812 ------- ------- ------- ------- -- Lab Results SONJA SERRA 08/05 Other Not Elsewhere Classified [facility] [place] [place] TELE CONSULT [id number] Notes Entered by: Telma SERRA 07 Aug 2019 0711 ------- ------- ------- ------- -- MARSHALL secure message to cancel appt SHAN LOPEZ Tina 08/06 [facility] [place]) Procedures Combined list of: 1) Procedures from Department of Veterans Affairs facilities going back up to thelast 18 months, not all VA non-surgical procedures are included; 2) All procedures from the Department of Defense facilities. Procedure Procedure Type Code Date Perfomer Comments Sourc e No data available for this section Ambulato ry Pharmacy Internet Med Svc Qual Nonphys Healthcare Prof Estab Patient Internet Med Svc Qual Nonphys Healthcare Prof Estab Patient [id number] SOFI LARA [facility] Screening papanicolaou smear; obtaining, preparing and conveyance of cervical or vaginal smear to laboratory 7 TELMA URIBE [facility] Gynecologic Services Intrauterine Device (IUD) Insertion Gynecologic Services Intrauterine Device (IUD) Insertion [id number] 6 LUCIANO RICE [facility] Urine HCG, Test Urine HCG, Test 53742 6 LUCIANO RICE [facility] Non-Physician Phone Call To Patient/Provider Brief (5-10min) Non-Physician Phone Call To Patient/Provider Brief (5-10min) 53216 UBALDO MCGUIRE [facility] Preventive Med Performance Of Chlamydia And Gonorrhea Screenings Documented Preventive Med Performance Of Chlamydia And Gonorrhea Screenings Documented [id number] SUAD HUFFMAN [facility] Screening papanicolaou smear; obtaining, preparing and conveyance of cervical or vaginal smear to laboratory SUAD HUFFMAN [facility] INSERTION OF INTRAUTERINE DEVICE (IUD) 6 [facility] SCREENING PAPANICOLAOU SMEAR; OBTAINING, PREPARING AND CONVEYANCE OF CERVICAL OR VAGINAL SMEAR TO LABORATORY 0 [facility] ONLINE ASSESS &MANAG SERV PROVIDE,A QUAL NONPHYS HCP TO AN ESTABLISHED PAT/GUARDIAN,NOT ORIGINAT FRM RELAT ASSESS &MANAG SERV PROVIDE W/IN THE PREV 7 DAYS,USE THE INTERNET/SIMILAR [employer] NETWORK 9 [facility] INSERTION OF INTRAUTERINE DEVICE (IUD) 9 [facility] TELE ASSESS & MGT SRV PROV QUAL NONPHYS HLTH CARE PRO TO EST PAT,PARENT,GUARD NOT ORIG REL ASSESS & MGT SRV PROV W/IN PREV 7 DAYS NOR LEAD ASSESS & MGT SRV/PX W/IN NXT 24 HR/SOON APT;5-10 MIN MED DIS 9 [facility] SCREENING PAPANICOLAOU SMEAR; OBTAINING, PREPARING AND CONVEYANCE OF CERVICAL OR VAGINAL SMEAR TO LABORATORY 7 [facility] Social History Combined list of available smoking, tobacco, and other social history from Department of Defense and Veterans Affairs facilities. Social History Type Response Date Comment Sourc e Sex Representation Female (finding) 06/08/2020 Unknown Organization Sexual Orientation Ambula tory Pharmacy Gender identity Ambulator y Pharmacy This section is an empty social history section. DoD Assessment and Plan Combined list of future care activities from Department of Defense and Veterans Affairs facilities (e.g., assessment and plan notes, appointments, orders, and referrals). Additional future care activities may be listed in the Plan of Care section. Result Assessment and Plan Date Source Assessment and Plan No data available for this section 08/07/2024 Ambulatory Pharmacy Functional Status Combined list of recent functional and cognitive assessments recorded at Department of Defense and Veterans Affairs (VA).VA Functional Willard Measurement (FIM) Scale: 1 = Total Assistance (Subject = 0% +), 2 = Maximal Assistance (Subject = 25% +), 3 = Moderate Assistance (Subject = 50% +), 4 = Minimal Assistance (Subject = 75% +), 5 = Supervision, 6 = Modified Willard (Device), 7 = Complete Willard (Timely, Safely). Assessment Date/Time Source Assessment Type Assessment Skill Assessment Score Assessment Details No data available for this section
== END 2024-08-07 15:11 | disposition home or self-care (01) ==
LOC: HO.HMCFM 13:48
PROVIDERS: PCP Family Medicine; Visit Provider Family Medicine
DX: E78.00 Pure hypercholesterolemia, unspecified (principal); F41.8 Other specified anxiety disorders

== ENCOUNTER → 2024-08-07 13:48 | Outpatient (BNVA) | payer OTHER, SELFPAY | PROVIDERS: PCP Family Medicine; Visit Provider Family Medicine ==